=== PATIENT | female | born 1990 | race American Indian/Alaskan Native ===

== ENCOUNTER 2018-10-12 08:44 | Emergency (ER) | payer MEDICAID ==
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
[2018-10-12 08:58] VITALS: BP 118/96
[2018-10-12] MEDS ORDERED: IBUPROFEN PO ONE ×2 (09:19→09:20)
[2018-10-12] MEDS ORDERED: NORCO 5/325 PO ONE (09:58)
[2018-10-12 11:49] LABS: Bilirubin,Urine NEG (Negative); Blood,Urine NEG (Negative); Color,Urine Yellow (Yellow); Mucus,Urine FEW /HPF; Protein,Urine <15 mg/dL mg/dL (Negative); Urobilinogen,Urine < 2.0 mg/dL (<2.0); WBC,Urine < 1.0 /HPF (0.0-6.0)
[2018-10-12 12:06] LABS: HCG Qualitative,Urine Negative (Negative)
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
--- NOTE | 2018-10-12 13:25 | XRay Report ---
XRAY LEFT KNEE 3 VIEWS: 10/12/18 08:44:00 CLINICAL: Pain. FINDINGS: No fracture or dislocation. No joint effusion. The soft tissues are normal. IMPRESSION: Normal left knee.
--- NOTE | 2018-10-12 13:31 | XRay Report ---
XRAY RIGHT FOOT THREE VIEWS: 10/12/18 08:44:00 CLINICAL: Pain FINDINGS: Normal bones, joints and soft tissues. No fracture or dislocation. IMPRESSION: Normal.
== END 2018-10-12 14:35 | disposition home or self-care (01) ==
LOC: ED 08:44
DX: M25.562 Pain in left knee (principal); M79.671 Pain in right foot; M79.10 Myalgia, unspecified site; F17.200 Nicotine dependence, unspecified, uncomplicated; V89.2XXA Person injured in unspecified motor-vehicle accident, traffic, initial encounter; Y93.89 Activity, other specified; Y92.488 Other paved roadways as the place of occurrence of the external cause; Y99.8 Other external cause status
CPT/HCPCS: 81001; 81025; 99284